=== PATIENT | female | born 1980 | race African-American/Black ===

== ENCOUNTER 2016-11-13 23:21 | Emergency (ER) | payer MEDICAID ==
[~2016-11-13] VITALS: Ht 177.8 cm; Wt 88.5 kg
[~2016-11-13 23:21] MED LIST: ALBUTEROL SULF8.5 GM INH; AMOXICILLIN500 MG ORAL; BACTRIM-DS1 EA PO; CEPHALEXIN500 MG PO; CORDARONE200 M1 ORAL; DIFLUCAN100 MG PO; DIFLUCAN200 MG ORAL; DOXYCYCLINE MO100 MG ORAL; FLAGYL500 MG ORAL; FUROSEMIDE20 M1 ORAL; IBUPROFEN600 MG ORAL; LOPRESSOR25 M1 ORAL; MACROBID 100 M100 MG PO; METRONIDAZOLE500 MG ORAL; NITROFURANTOIN100 M2 ORAL; NKM; PREDNISONE20 MG ORAL; SPIRONOLACTONE1 EACH ORAL; WARFARIN SODIU7.5 MG ORAL; XARELTO10 MG ORAL; ZESTRIL10 MG ORAL; ZITHROMAX250 MG ORAL
[2016-11-14 00:47] LABS: APPEARANCE,URINE CLEAR; KETONES,URINE NEGATIVE (NEGATIVE); LEUKOCYTE ESTERASE ,URINE 2+ (NEGATIVE); NITRITE,URINE NEGATIVE (NEGATIVE); PH,URINE 6 (4.5-8.0); PROTEIN,URINE NEGATIVE (NEGATIVE); UROBILINOGEN,URINE NORMAL MG/DL (0.0-1.0)
[2016-11-14 00:55] LABS: BACTERIA,URINE MODERATE /HPF; RBC,URINE 0-2 /HPF (0 - 2); SQUAMOUS EPITHELIAL CELL,UR MANY /LPF (NONE/OCC)
[2016-11-14] MEDS ORDERED: Lidocaine 1% MPF 10mg/ml 5ml ONE (01:38)
[2016-11-14 01:45] VITALS: BP 124/85
[2016-11-14] MEDS ORDERED: Azithromycin 250mg tab ORAL ONE (01:45)
[2016-11-14] MEDS ORDERED: KEFLEX500 MG ORAL (01:45)
[2016-11-14] MEDS ORDERED: PHENAZOPYRIDIN100 MG ORAL (01:45)
[2016-11-14 01:50] VITALS: BP 124/85
--- NOTE | 2016-11-14 07:22 | Emergency Room Report ---
History of Present Illness General Chief Complaint: Vaginal Source: Patient Present Illness HPI 36-year-old female presents to ED with burning urination and irritation x3 days. States she's been sexually active. Pain is 8/10, burning, nonradiating. Patient denies any vaginal bleeding. Denies any discharge. Denies fevers or chills. Denies flank pain. Denies nausea or vomiting. No aggravating relieving factors. Denies any other associated symptoms Allergies: Coded Allergies: SHELLFISH DERIVED (Verified Allergy, Mild, 01/16/15) Patient History Past Medical History: asthma Past Surgical History: none Pertinent Family History: none Social History: Denies: alcohol use, drug use, smoking Last Menstrual Period: 1 week ago Now: No Immunizations: UTD Reviewed Nursing Documentation: PMH: Agreed, PSxH: Agreed Nursing Documentation-PMH Hx Cardiac Problems: Yes - HF, 04/2015 Hx Asthma: Yes Hx Cancer: No Hx Gastrointestinal Problems: No Hx Neurological Problems: No Review of Systems All Other Systems: negative except mentioned in HPI Physical Exam Vital Signs Date Time Temp Pulse Resp B/P Pulse Ox O2 Delivery O2 Flow Rate FiO2 11/13/16 23:45 97.9 75 16 115/79 100 Room Air Sp02 EP Interpretation: reviewed, normal General Appearance: no apparent distress, alert, GCS 15, non-toxic Head: normocephalic, atraumatic Eyes: bilateral eye PERRL, bilateral eye normal inspection ENT: hearing grossly normal, normal pharynx, no angioedema, normal voice Neck: full range of motion, supple/symm/no masses Respiratory: chest non-tender, lungs clear, normal breath sounds, speaking full sentences Cardiovascular #1: regular rate, rhythm, no edema Cardiovascular #2: 2+ carotid (R), 2+ carotid (L), 2+ radial (R), 2+ radial (L) , 2+ dorsalis pedis (R), 2+ dorsalis pedis (L) Gastrointestinal: normal bowel sounds, non tender, soft, non-distended, no guarding, no rebound Rectal: deferred Genitourinary: normal inspection, no CVA tenderness Musculoskeletal: back normal, gait/station normal, normal range of motion, non- tender Neurologic: alert, oriented x3, responsive, motor strength/tone normal, sensory intact, speech normal Psychiatric: judgement/insight normal, memory normal, mood/affect normal, no suicidal/homicidal ideation Reflexes: 3+ bicep (R), 3+ bicep (L), 3+ tricep (R), 3+ tricep (L), 3+ knee (R) , 3+ knee (L) Skin: normal color, no rash, warm/dry, well hydrated Lymphatic: no adenopathy Medical Decision Making Diagnostic Impression: Primary Impression: Cervicitis Additional Impression: UTI (urinary tract infection) Qualified Codes: N39.0 - Urinary tract infection, site not specified ER Course Hospital Course 36-year-old female presents to ED complaining of dysuria with suprapubic pain. Differential diagnoses include: UTI, cystitis, pyelonephritis Clinical course Patient placed on stretcher. After initial history and physical I ordered UA, urine . UA + bacteria. Patient is also endorsing history of unprotected sex. I reviewed EMR and patient has been here multiple times with similar presentation Patient given Rocephin and azithromycin in ED. Will be discharged on antibiotics for UTI Diagnosis - UTI, cervicitis Stable and discharged home with prescriptions for Rx keflex, pyridium. Instructed to followup with PMD. Return to ED if symptoms recur or worsen Labs Test 11/14/16 00:00 Urine Color Pale yellow Urine Appearance Clear Urine pH 6 (4.5-8.0) Urine Specific [place] 1.010 (1.005-1.035) Urine Protein Negative (NEGATIVE) Urine Glucose (UA) Negative (NEGATIVE) Urine Ketones Negative (NEGATIVE) Urine Occult Blood 1+ (NEGATIVE) Urine Nitrite Negative (NEGATIVE) Urine Bilirubin Negative (NEGATIVE) Urine Urobilinogen Normal MG/DL (0.0-1.0) Urine Leukocyte Esterase 2+ (NEGATIVE) Urine RBC 0-2 /HPF (0 - 2) Urine WBC 5-10 /HPF (0 - 2) Urine Squamous Epithelial Cells Many /LPF (NONE/OCC) Urine Bacteria Moderate /HPF (NONE) Urine HCG, Qualitative Negative Last Vital Signs Date Time Temp Pulse Resp B/P Pulse Ox O2 Delivery O2 Flow Rate FiO2 11/14/16 01:50 97.9 72 16 124/85 100 Room Air Status: improved Disposition: HOME, SELF-CARE Condition: Stable Scripts Phenazopyridine Hcl* (PYRIDIUM*) 100 Mg Tablet 100 MG ORAL THREE TIMES A DAY for 3 Days, TAB Prov: ADRIANO KABA M.D. 11/14/16 Cephalexin* (KEFLEX*) 500 Mg Capsule 500 MG ORAL Q6H, #28 CAP 0 Refills Prov: ADRIANO KABA M.D. 11/14/16 Referrals: [facility] (PCP) Patient Instructions: Cervicitis, [id number] ADRIANO KABA M.D. November 14, 2016 07:22
== END 2016-11-14 01:50 | disposition home or self-care (01) ==
LOC: EMR 23:50
DX: N72 Inflammatory disease of cervix uteri (principal); N39.0 Urinary tract infection, site not specified; J45.909 Unspecified asthma, uncomplicated; Z91.013 Allergy to seafood
CPT/HCPCS: 81003; 81025; 87086; 96372; 99284; J0696; Q0144